=== PATIENT | male | born 1935 | race African-American/Black ===

== ENCOUNTER 2021-07-20 08:29 | Outpatient (CLI) | payer MEDICARE ==
[2021-07-20] MEDS ORDERED: Iopamidol 370 76% 100 ML VIAL ONE (08:33)
[2021-07-20] MEDS ORDERED: GASTROGRAFIN 30 ML BOT ONE (08:33)
== END 2021-07-20 08:30 | disposition home or self-care (01) ==
LOC: CT 08:29
PROVIDERS: ATTEND Internal Medicine Hematology & Oncology
DX: C61 Malignant neoplasm of prostate (principal); C79.51 Secondary malignant neoplasm of bone; N28.9 Disorder of kidney and ureter, unspecified; I51.7 Cardiomegaly; K62.89 Other specified diseases of anus and rectum; N40.0 Benign prostatic hyperplasia without lower urinary tract symptoms
CPT/HCPCS: 71260; 74177; 78306; 82565; A9503; Q9963; Q9967